=== PATIENT | female | born 1960 | race Hispanic/Latino ===

== ENCOUNTER 2021-07-03 11:19 | Emergency (ER) | payer OTHER ==
[2021-07-03] MEDS ORDERED: Acetaminophen 500 MG TAB ONE (12:37)
[2021-07-03] MEDS ORDERED: Ventolin HFA Inhaler 60 PUFF INHALER ONE (12:38)
[2021-07-03 12:45] LABS: #Eosinphils 0.1 10x3/uL (0.0-0.5); #Monocytes 0.5 10x3/uL (0.0-1.1); #Neutrophils 2.8 10x3/uL (1.5-8.4); %Basophils 0.4 % (0.0-2.0); %Eosinophils 1.8 % (0.0-6.0); %Lymphocytes 32.7 % (18.0-47.0); %Monocytes 8.9 % (0.0-10.0); Hemoglobin 11.9 g/dL (12.0-15.5); Mean Corpuscular HGB CONC 32.6 g/dL (32.0-36.0); Mean Corpuscular Hemoglobin 28.7 pg (27.0-33.0); Platelet Count 150 10x3/uL (150-450); RBC Distribution Width 13.2 % (11.5-14.5); Red Blood Cell (RBC) Count 4.15 10x6/uL (3.90-5.03)
[2021-07-03 12:57] LABS: ALT (SGPT) 11 U/L (8-55); AST (SGOT) 15 U/L (5-34); Albumin 3.6 g/dL (3.5-5.0); Alkaline Phosphatase 98 U/L (40-110); Anion Gap 13 mmol/L (10-20); BUN (Urea Nitrogen) 14 mg/dL (9.8-20.1); Bilirubin, Total 0.8 mg/dL (0.2-1.2); Calc. Creatinine Clearance 0 mL/min (70-130); Calcium 9.4 mg/dL (7.8-10.44); Carbon Dioxide 25 mmol/L (22-29); Chloride 105 mmol/L (98-107); Globulin 3.3 g/dL (2.4-3.5); Glucose 112 mg/dL (70-105); Potassium 4.2 mmol/L (3.5-5.1); Protein, Total 6.9 g/dL (6.0-8.3); Sodium 139 mmol/L (136-145)
[2021-07-03 13:39] LABS: SARS-CoV-2 NAA Rapid Test Not Detected (NotDetected)
== END 2021-07-03 14:55 | disposition home or self-care (01) ==
LOC: CSHERS 11:19
DX: R05.9 Cough, unspecified (principal); R11.0 Nausea; Z20.822 Contact with and (suspected) exposure to COVID-19; E11.9 Type 2 diabetes mellitus without complications; E03.9 Hypothyroidism, unspecified; Z79.899 Other long term (current) drug therapy; Z79.84 Long term (current) use of oral hypoglycemic drugs; Z79.82 Long term (current) use of aspirin
CPT/HCPCS: 0240U; 71045; 80053; 83605; 83880; 84484; 85025; 85379; 93005; 94760

== ENCOUNTER 2021-11-28 14:28 | Emergency (ER) | payer OTHER ==
[2021-11-28] MEDS ORDERED: Acetaminophen 500 MG TAB ONE (15:50)
[2021-11-28] MEDS ORDERED: Ketorolac Tromethamine 30 MG/ML VIAL ONE (17:09)
== END 2021-11-28 17:30 | disposition home or self-care (01) ==
LOC: CSHERS 14:28
DX: S09.90XA Unspecified injury of head, initial encounter (principal); E11.9 Type 2 diabetes mellitus without complications; W22.8XXA Striking against or struck by other objects, initial encounter
CPT/HCPCS: 70450; 93005; 96372; J1885

== ENCOUNTER 2023-04-29 17:00 | Emergency (ER) | payer OTHER ==
[2023-04-29 18:21] LABS: #Basophils 0.1 10x3/uL (0.0-0.2); #Eosinphils 0.1 10x3/uL (0.0-0.5); #Monocytes 0.6 10x3/uL (0.0-1.1); #Neutrophils 4.2 10x3/uL (1.5-8.4); %Basophils 0.8 % (0.0-2.0); %Eosinophils 1.1 % (0.0-6.0); %Lymphocytes 24.4 % (18.0-47.0); %Monocytes 8.6 % (0.0-10.0); %Neutrophils 64.5 % (40.0-75.0); Hematocrit 37.4 % (34.9-44.5); Hemoglobin 12.4 g/dL (12.0-15.5); Mean Corpuscular HGB CONC 33.2 g/dL (32.0-36.0); Mean Corpuscular Hemoglobin 29.5 pg (27.0-33.0); Mean Corpuscular Volume 88.8 fl (81.6-98.3); Mean Platelet Volume 12.1 fl (7.4-10.4); Platelet Count 164 10x3/uL (150-450); RBC Distribution Width 13.8 % (11.5-14.5); Red Blood Cell (RBC) Count 4.21 10x6/uL (3.90-5.03); White Blood Cell (WBC) Count 6.5 10x3/uL (3.5-10.5)
[2023-04-29] MEDS ORDERED: diphenhydrAMINE 50 MG/ML VIAL ONE (18:25)
[2023-04-29] MEDS ORDERED: Acetaminophen 500 MG TAB ONE (18:25)
[2023-04-29] MEDS ORDERED: Metoclopramide 10 MG/10 ML UDCUP ONE (18:26)
[2023-04-29 18:52] LABS: ALT (SGPT) 9 U/L (8-55); AST (SGOT) 17 U/L (5-34); Albumin 3.7 g/dL (3.4-4.8); Alkaline Phosphatase 107 U/L (40-110); Anion Gap 13 mmol/L (10-20); BUN (Urea Nitrogen) 13 mg/dL (9.8-20.1); Bilirubin, Total 0.6 mg/dL (0.2-1.2); Calc. Creatinine Clearance 0 mL/min (70-130); Calcium 9.4 mg/dL (7.8-10.44); Carbon Dioxide 24 mmol/L (23-31); Chloride 107 mmol/L (98-107); Estimated GFR 86; Globulin 3.9 g/dL (2.4-3.5); Glucose 120 mg/dL (80-115); Protein, Total 7.6 g/dL (5.8-8.1); Sodium 140 mmol/L (136-145)
[2023-04-29 18:56] LABS: Troponin I Less than 0.010 ng/mL (< 0.028)
== END 2023-04-29 21:45 | disposition home or self-care (01) ==
LOC: CSHERS 17:00
DX: R51.9 Headache, unspecified (principal); E11.9 Type 2 diabetes mellitus without complications; I10 Essential (primary) hypertension
CPT/HCPCS: 70450; 71045; 80053; 83880; 84484; 85025; 93005; 96374; 96375; J1200